=== PATIENT | male | born 1995 ===

== ENCOUNTER 2024-03-16 15:19 | Emergency (ER) | payer OTHER | END 2024-03-16 16:30 | disposition home or self-care (01) | LOC: ERS 15:19 → EEVIPCON 15:19 → ERS 16:30 | DX: L97.519 Non-pressure chronic ulcer of other part of right foot with unspecified severity (principal); L08.9 Local infection of the skin and subcutaneous tissue, unspecified | CPT/HCPCS: 99283 ==